=== PATIENT | female | born 1995 | race Caucasian/White ===

== ENCOUNTER 2017-06-02 14:53 | Emergency (ER) | payer BC ==
[~2017-06-02] VITALS: Wt 72.8 kg
[~2017-06-02 14:53] MED LIST: IBUP-1542 PO; IBUP400T22 PO; ONDA4TAB35 PO; SODI75SP NASAL; VAL2 PO
[2017-06-02] MEDS ORDERED: ELIM TOP (15:16)
[2017-06-02] MEDS ORDERED: HYDR-842 PO (15:16)
--- NOTE | 2017-06-02 15:23 | ERD ---
ER Documentation Chief Complaint Chief Complaint itchy rash HPI 22-year-old female presents with a pruritic rash has been on and off for the past week. She describes as itching, and reports red bumps associated with it. She had undergone a dog from [place] which she adopted 2 weeks ago but she states that she took the dog to the vet and the skin test was negative for parasites. 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 There are no new associated foods, medications or lotions or creams. ROS All systems reviewed and are negative except as per history of present illness. Medications Home Meds Active Scripts Permethrin* (Elimite*) 5% Cr, 1 APPLIC TOP ONCE, #2 TUB Prov:KAMRAN OZUNA PA-C 06/02/17 Hydroxyzine Hcl* (Atarax*) 25 Mg Tab, 25 MG PO Q6H Y for ITCHING, #30 TAB Prov:KAMRAN OZUNA PA-C 06/02/17 Ibuprofen* (Motrin*) 400 Mg Tab, 400 MG PO Q6, #30 TAB Prov:SLOANE LLANES PA-C 06/05/16 Diazepam* (Valium*) 2 Mg Tab, 2 MG PO QHS, #7 TAB Prov:SLOANE LLANES PA-C 06/05/16 Ibuprofen* (Motrin*) 600 Mg Tab, 600 MG PO Q6, #20 TAB Prov:MAGGI CARNEY MD 02/17/16 Ondansetron Hcl* (Zofran* ODT) 4 mg -ODT Tab.disper, 4 MG PO Q6 Y for NAUSEA AND /OR VOMITING, #10 TAB Prov:VERONICA BAUTISTA NP 08/18/15 Sodium Chloride/Sod Bicarb (Nasa Mist Saline [place]) 75 Ml [place], 2 SPRAYS NASAL BID, #1 BOTTLE Prov:VERONICA BAUTISTA NP 08/18/15 Allergies Allergies: Coded Allergies: No Known Allergy (Unverified , 02/17/16) PMhx/Soc History of Surgery: No Anesthesia Reaction: No Hx Neurological Disorder: No Hx Respiratory Disorders: No Hx Cardiac Disorders: No Hx Psychiatric Problems: No Hx Miscellaneous Medical Probl: No Hx Alcohol Use: No Hx Substance Use: No Hx Tobacco Use: No Physical Exam Vitals Vital Signs Date Time Temp Pulse Resp B/P Pulse Ox O2 Delivery O2 Flow Rate FiO2 06/02/17 14:55 98.7 112 20 145/91 98 Physical Exam General: Well-developed, well-nourished. The patient appears in no acute distress. HEENT: Head is normocephalic, atraumatic. No scleral icterus. Neck: Supple. Nontender. Lungs: Clear to auscultation. Normal air movement. Heart: Regular rate and rhythm. S1 and S2 are normal. No murmurs, gallops, or rubs. Abdomen: Nondistended. Extremities: No clubbing or cyanosis. Moving extremities x 4. No weakness. Neurologic: Alert and oriented 3. No focal deficits. Normal speech and gait. Skin: Scattered erythematous rash, and is on the trunk, arms and legs. There is no vesicular, no petechiae, no purpura.. Procedures/MDM 22-year-old female comes emergency department scattered rashes for a week, and she does not have any associated allergy with this. There are no signs of infection, petechiae, purpura. 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 Departure Diagnosis: Primary Impression: Rash Condition: Good Patient Instructions: Dermatitis, Non-Specific KAMRAN OZUNA PA-C Jun 02, 2017 15:23
== END 2017-06-02 16:04 | disposition home or self-care (01) ==
LOC: E/R 14:53
DX: R21 Rash and other nonspecific skin eruption (principal)
CPT/HCPCS: 99283

== ENCOUNTER → 2018-07-08 | Outpatient (CLI) | END | disposition home or self-care (01) ==